=== PATIENT | female | born 1995 | race Caucasian/White ===

== ENCOUNTER 2023-07-03 05:40 | Emergency (ER) | payer SELFPAY ==
[2023-07-03] MEDS: Ondansetron 4 MG/2 ML SDV IVPUSH STA ×2 (06:08→08:21)
[2023-07-03] MEDS: HYDROmorphone 0.5 MG/0.5 ML Syringe IVPUSH ONE (06:09)
[2023-07-03] MEDS: Sodium Chloride 0.9% 1,000 ML IV ONE (06:10)
[2023-07-03 06:15] LABS: BASOPHILS ABSOLUTE AUTO 0.03 10^3/uL (0.00-0.50); BASOPHILS PERCENT AUTO 0.2 % (0-1); EOSINOPHILS ABSOLUTE AUTO 0.21 10^3/uL (0.00-1.50); EOSINOPHILS PERCENT AUTO 1.7 % (0-6); HEMATOCRIT 37.5 % (37.0-47.0); HEMOGLOBIN 12.9 g/dL (12.0-16.0); IMMATURE GRAN ABSOLUTE AUTO 0.02 10^3/uL (0.00-0.49); IMMATURE GRAN PERCENT AUTO 0.2 % (0.0-4.9); LYMPHOCYTES PERCENT AUTO 28.8 % (24-44); MEAN CORPUSCULAR HEMOGLOBIN 29.6 pg (27.0-32.0); MEAN CORPUSCULAR HGB CONC 34.4 g/dL (32.0-36.0); MONOCYTES PERCENT AUTO 6.4 % (0-10); NEUTROPHILS ABSOLUTE AUTO 7.85 x10^3/uL (1.80-8.00); NEUTROPHILS PERCENT AUTO 62.7 % (41-71); PLATELET COUNT,PLT 305 10^3/uL (150-400); RED BLOOD CELL COUNT 4.36 x10^6/uL (4.00-5.50); WHITE BLOOD CELL COUNT,WBC 12.5 10^3/uL (4.0-11.0)
[2023-07-03 06:21] LABS: APPEARANCE,URINE CLEAR (CLEAR); BILIRUBIN,URINE NEGATIVE (NEGATIVE); COLOR,URINE YELLOW (YELLOW); GLUCOSE,URINE NEGATIVE (NEGATIVE); KETONES,URINE NEGATIVE (NEGATIVE); LEUKOCYTE ESTERASE,URINE TRACE (NEGATIVE); NITRITE,URINE NEGATIVE (NEGATIVE); OCCULT BLOOD,URINE NEGATIVE (NEGATIVE); PH,URINE 5.5 (4.5-8.0); PROTEIN,URINE NEGATIVE (NEGATIVE); UROBILINOGEN,URINE 0.2 EU/dL (0.2-1.0)
[2023-07-03 06:29] LABS: ALBUMIN 3.3 g/dL (3.4-5.0); BILIRUBIN TOTAL 0.2 mg/dL (0.0-1.0); C-REACTIVE PROTEIN 1.62 mg/dL (<=0.30); CALCIUM 8.5 mg/dL (8.4-10.1); EST CRCL DRUG DOSING (CG) 68.02 mL/min; POTASSIUM,K 3.6 mEq/L (3.5-5.0); PROTEIN TOTAL,TP 7.7 g/dL (6.4-8.2)
[2023-07-03 06:32] LABS: BACTERIA,URINE FEW /HPF (NOT SEEN); RBC,URINE 0-5 /HPF (0-5); SQUAMOUS EPITHELIAL CELLS,UR MODERATE /HPF (NOT SEEN)
[2023-07-03] MEDS: Iopamidol 755 Mg/ML 100 ML Bottle IVPUSH ONE (06:38)
[2023-07-03] MEDS: diphenhydrAMINE 50 MG/ML SDV IVPUSH ONE (07:15)
[2023-07-03] MEDS: Naloxone 2 MG/2 ML Syringe IVPUSH ONE (07:21)
== END 2023-07-03 08:45 | disposition home or self-care (01) ==
LOC: CC.ED 05:40
DX: K57.32 Diverticulitis of large intestine without perforation or abscess without bleeding (principal); F17.210 Nicotine dependence, cigarettes, uncomplicated
CPT/HCPCS: 36415; 74177; 80053; 81001; 81025; 83605; 85025; 86140; 96361; 96374; 96375; 96376; 99284; 99284-25; J1170; J1200; J2310; J2405; J7030; Q9967